=== PATIENT | female | born 1970 | race Caucasian/White ===

== ENCOUNTER 2024-11-26 16:46 | Emergency (ER) | payer OTHER, SELFPAY ==
--- OUTSIDE RECORDS SUMMARY | 2024-11-26 16:48 | XMS_ITS | Clinical Summary ---
Author Organization [facility] Address [address] [place] [id number] Care Team Providers Care Child Protective Services Social Worker Name Role Phone Marivel Lopez MD Primary Care Provider [phone] Atilio Bingham MD Unavailable [phone] Allergies No known active allergies Medications SUMAtriptan (IMITREX) 25 mg tabletIndications:M igraine without aura and without status migrainosus, not intractable Take 1 Tablet (25 mg) by mouth every 2 hours if needed for Migraine. Give at minimum 2hrs apart. Max Dose: 200mg per 24hrs. 10 Tablet 3 4 Active ondansetron (ZOFRAN ODT) 4 mg disintegrating tabletIndications:M igraine without aura and without status migrainosus, not intractable Place 1-2 Tablets (4-8 mg) on the tongue every 8 hours if needed for Nausea/Vomit ing. 30 Tablet 1 4 Active hydrOXYzine HCL (ATARAX) 25 mg tabletIndications:S leep disturbance Take 1/2 to 1 tab po q hs for anxiety/slee p 30 Tablet 1 5 Active Active Problems Problem Noted Date Diagnosed Date Migraine without aura and wi thout status migrainosus, not intractable 09/22/2024 Pap smear for cervical cancer screening 12/09/19 24 Overview (12/09/2023): 11/2023 NIL/HPV Negative Plan: Pap and HPV due 11/2028 Colon polyp 03/19/2023 Overview (03/19/2023): Colonoscopy 03/2023 SSA , repeat in 3 years Generalized anxiety disorder 06/13/2018 Depression 06/13/2018 Acne 04/11/2018 Frontal headache - episodic 12/16/2015 Other and unspecified ovarian cyst 10/08/2011 Abdominal bloating 10/08/2011 Overview (11/13/2013): EGD 11/2013 reflux on biopsy Encounters Date Type Department Care Team Description 10/12/2024 12:00 PM MERCHANDISE MANAGER Office Visit [facility] [address] [place] [address] Atilio Bingham MD Consult (Microscopic hematuria) 10/12/2024 Travel 09/22/2024 9:00 AM MERCHANDISE MANAGER Ancillary Procedure [facility] [address] [place] [address] 09/22/2024 8:15 AM MERCHANDISE MANAGER Office Visit [facility] [address] [place] [address] Marivel Lopez MD Migraine (4 Migraines since january, mostly in the middle of the night and no relief with OTC meds, looking for quick relief/) 09/22/2024 Travel from Last 3 Months Immunizations Name Administration Dates Next Due AMB Influenza, IIV3 (Age >=3 years)(Flu Clinic Only) 07/20/2013,09/17/2009,08/10/2008 AMB Influenza, IIV4 PF (=>6 mos Flulaval,Fluzone Fluarix)(Flu Clinic Only) 08/21/2017,08/06/2015,07/24/2014 COVID-19 vaccine ([employer] JV NTBreadcrumbtracking 30mcg/0.3mL) PF, MDV 11/12/2020,10/22/2020 Influenza A (H1N1), Inactivated 08/15/2009 Influenza, IIV3 (Age 6-35 mos) 09/17/2009 Influenza, IIV3 (Age >=3 years) 07/20/20 13,07/07/2012,10/08/2011,2009,08/10/2008,09/15/2007,09/01/2005 Influenza, IIV4 07/26/2022,,07/11/2020,2018,06/23/2018,07/16/2016,08/06/2015,1 Td (Age >=7 Years) 08/14/2020,10/04/2001 Tdap 08/14/2010 Family History Medical History Relation Name Comments Other Father AAA age 90 Stroke Maternal Grandmother Cancer Mother renal Cancer-breast Paternal Aunt Cancer-ovarian No Family History Relation Name Status Comments Father Maternal Grandmother Mother renal ca Paternal Aunt Social History Tobacco Use Types Packs/Day Years Used Date Smoking Tobacco: Never Smokeless Tobacco: Never Tobacco Cessation:Counseling Given: Yes Alcohol Use Standard Drinks/Week Comments Yes 0 (1 standard drink = 0.6 oz pur e alcohol) rarely 1 drink per month PHQ-2 Answer Date Recorded PHQ-2 TOTAL SCORE 4 11/23/2024 Social Connections Answer Date Recorded Do you often feel lonely or isolated from those around you? 0 12/02/2023 Financial Resource Strain Answer Date R ecorded Difficulty of Paying Living Expenses 3 12/02/2023 Difficulty of Paying Living Expenses Not on file 12/02/2023 Food Insecurity Answer Date Recorded Do you worry your food will run out before you are able to buy more? 1 12/02/2023 Transportation Needs Answer Date Record ed Does lack of transportation keep you from medica l appointments? 1 12/02/2023 Does lack of transportation keep you from work, meetings or getting things that you need? 1 12/02/2023 Housing Stability Answer Date Recorded What is your housing situation today? 1 12/02/2023 Utilities Answer Date Recorded Do you have trouble paying f or utilities (for example, heat, electricity, water, phone)? 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 Not on file Not on file Not on file Obstetrics History Para Term AB IAB SAB Ectopic Multiple Livin g Live Births 2 2 2 0 0 0 0 0 0 2 2 Date Outcome GA Total Labor Labor/2nd/3rd Weight Sex Type Anes PTL Caron A1 A5 Name Clin 2003 Term Living 2005 Term Living Last Filed Vital Signs Vital Sign Reading Time Taken Comments Blood Pressure 124/60 10/12/2024 12:03 PM MERCHANDISE MANAGER Pulse 76 10/12/2024 12:03 PM MERCHANDISE MANAGER Temperature 36.7 C (98.1 F) 07/14/2019 2:24 PM CDT Respiratory Rate 16 03/16/2023 9:30 AM CDT Oxygen Saturation 100% 09/22/2024 8:19 AM MERCHANDISE MANAGER Inhaled Oxygen Concentration - - Weight 63.3 kg (139 lb 9.6 oz) 10/12/2024 12:03 PM MERCHANDISE MANAGER Height 171.8 cm (5' 7.64) 05/24/2023 2:28 PM CD T Body Mass Index 21.45 05/24/2023 2:28 PM CDT Plan of Treatment Upcoming Encounters Date Type Department Care Team (Late st Contact Info) Description 01/01/2025 8:20 AM CDT Office Visit [facility] [address] [place] [address] Marivel Lopez MD [address] [place] [address] Health Maintenance Due Date Last Done Comments HIV for age 15-65 1985 Hepatitis C screening for ag e 18-79 01/21/1988 Pneumococcal series for age 50+ (1 of 1 - PCV) 01/21/2020 Zoster (shingles) series for age 50+ (1 of 2) 01/21/2020 BMI (ht and wt on same day) for age 18+ 05/24/2024 05/24/2023, 11/10/2021, 08/14/2020, Additional history exists Influenza for age 50-64 06/04/2024 07/26/20 22, 07/09/2021, 07/11/2020, Additional history exists Mammogram for age 45-75 09/22/2025 09/22/20 24, 05/05/2023, 02/11/2022, Additional history exists Depression screening for age 12+ 11/23/2025 11/23/2024, 10/05/2023, 10/28/2022, Additional history exists Colonoscopy through age 75 03/16/202603/16, 03/16/2023, 03/16/2023 Lipids for age 45-75 11/17/2028 11/17/2023, 08/14/2020, 11/15/2014, Additional history exists Pap test for age 21-65 12/01/2028, 12/02/2023, 12/15/2018, Additional history exists Tetanus booster 08/14/2030 08/14/2020, 08/04, 10/04/2001 Tdap Completed 08/14/2010 COVID-19 vaccine series Completed 07/20/20 24, 06/23/2022, 09/03/2021, Additional history exists Procedures Procedure Name Priority Date/Time Associated Diagnosis Comments XR MAMMO CRISTINA BILAT SCREEN Routine 09/22/2024 9:15 AM MERCHANDISE MANAGER Encounter for screening mammogram for malignant neoplasm of breast HPV HIGH RISK Routine 12/02/2023 9:02 AM MERCHANDISE MANAGER Pap smear for cervical cancer screening LIPID PANEL W REFLEX MEASURED LDL Routine 11/17/2023 4:49 PM MERCHANDISE MANAGER Elevated blood pressure reading without diagnosis of hypertension COLONOSCOPY SCREENING Routine 03/16/2023 7:56 AM CDT Screening for colon cancer from Last 3 Months or Most Recently Relevant to Health Maintenance Results * XR MAMMO CRISTINA BILAT SCREEN (09/22/2024 9:15 AM MERCHANDISE MANAGER) Anatomical Region Laterality Modality BREASTS, Breast Left, Breast Right Bilateral Mammography Impressions 09/22/2024 2:44 PM MERCHANDISE MANAGER There is no radiographic evidence for malignancy. Recommend annual mammograms. MAMMOGRAM ASSESSMENT: ACR 1 Negative PATIENTS: You will also receive a letter with your examination results in an easy to read format. If you have questions about your results, please contact your referring provider. Narrative 09/22/2024 2:44 PM MERCHANDISE MANAGER For Patients: As a result of the Century Cures Act, medical imaging exams and procedure reports are released immediately into your electronic medical record. You may view this report before your referring provider. If you have questions, please contact your health care provider. XR MAMMO CRISTINA BILAT SCREEN [[id number]] CLINICAL HISTORY: This is an asymptomatic 54 y.o. patient. INDICATION FOR EXAM: Mammogram Screening. TECHNIQUE: CC & MLO views were obtained. This study was evaluated with the assistance of Computer-Aided Detection. Breast Tomosynthesis was used in interpretation. COMPARISON FILM: Yes 05/05/23 [facility] [employer] 02/11/22 [facility] FINDINGS: The breasts are extremely dense, which lowers the sensitivity of mammography. There are no dominant masses, suspicious micro calcifications or areas of architectural distortion. us Marivel Lopez MD MAMMO Final Resul t * HPV HIGH RISK (12/02/2023 9:02 AM MERCHANDISE MANAGER) TYPE 16 Negative Negative 12/07/2023 1:31 PM MERCHANDISE MANAGER [facility] TYPE 18 Negative Negative 12/07/2023 1:31 PM MERCHANDISE MANAGER [facility] OTHER HIGH RISK TYPES Negative Negative 12/07/2023 1:31 PM [facility]CHANDISE MANAGER [facility] Other (Cervical) Non-Blood / Unknown 12/02/2023 9:02 AM MERCHANDISE MANAGER 12/03/2023 1:43 PM MERCHANDISE MANAGER Narrative [facility] - 12/07/2023 1:31 PM MERCHANDISE MANAGER HPV types 16, 18, 31, 33, 35, 39, 45, 51, 52, 56, 58, 59, 66 and 68 DNA were undetectable or below the pre-set threshold. Methodology: Chai Violeta 4800 HPV Test us Marivel Lopez MD MICROBIOLOGY Final Resul t [facility] [address] [address], * LIPID PANEL W REFLEX MEASURED LDL (11/17/2023 4:49 PM MERCHANDISE MANAGER) CHOLESTEROL,TOTAL 179 100 - 199 mg/dL 11/18/2023 3:00 PM [facility] Comment: Cholesterol, Total Reference Ranges Desirable <200 mg/dL Borderline 200-239 mg/dL High >=240 mg/dL TRIGLYCERIDES 131 <150 mg/dL 11/18/2023 3:00 PM MERCHANDISE MANAGER [facility] HDL CHOLESTEROL 53 >40 mg/dL 3:00 PM [facility] NON-HDL CHOLESTEROL 126 <145 mg/dl 11/18/2023 3:00 PM MERCHANDISE MANAGER [facility] CHOL/HDL RATIO 3.38 <4.50 11/18/2023 3:00 PM MERCHANDISE MANAGER [facility] LDL CHOLESTEROL 100 <=130 mg/dL 11/18/2023 3:00 PM [facility] VLDL CHOLESTEROL 26 <=30 mg/dL 11/18/2023 3:00 PM [facility] PROVIDER ORDERED STATUS RANDOM 11/18/2023 3:00 PM [facility] Blood BLOOD SPECIMEN / Unknown Venipuncture / Unknown 11/17/2023 4:49 PM MERCHANDISE MANAGER 11/17/2023 4:51 PM MERCHANDISE MANAGER us Marivel Lopez MD CHEMISTRY Final Resul t [facility] [address] [address], [place] * COLONOSCOPY (03/16/2023 8:28 AM CDT) 03/16/2023 8:28 AM CDT Narrative Transcriptions Keven Lim MD - 03/16/2023 9:15 AM CDT Patient Name: Luba Kruse Procedure Date: 03/16/2023 Gender: Female Date of : 1970 Admit Type: Outpatient Procedure: Colonoscopy Proceduralist: Keven Lim MD , Mary Recio (Nurse), Melissa Boothe RN (Nurse) Indications/Pre-Op Diagnosis: Screening for colorectal malignant neoplasm, This is the patient's first colonoscopy, Incidental diarrhea noted Medications: Fentanyl 100 micrograms IV, Midazolam 4 mgIV, The level of sedation administered wasmoderate Procedure Description: The patient had risks, benefits and alternatives explained to andgave informed consent. The patient had a stable cardiopulmonary status and judged an adequate candidate for conscious sedation. The [id number] was passed through the anus and advanced to the terminal ileum. The colonoscopy was performed without difficulty. The patient tolerated the procedure well. The quality of the bowel preparationwas good. The ileocecal valve, appendiceal orifice, and rectum were photographed. Complications: No immediate complications. Estimated Blood Loss & Specimen: Estimated blood loss: none. Specimen collected - Yes and sent to Laboratory Findings: The perianal and digital rectal examinations were normal. The terminal ileum appeared normal. The entire examined colon appeared normal on direct and retroflexion views. Biopsies for histology were taken with a cold forceps from the entire colon for evaluation of microscopic colitis. Impressions/Post-Op Diagnosis: - The examined portion of the ileum was normal. - The entire examined colon is normal on direct and retroflexionviews. - Biopsies were taken with a cold forceps from the entire colon for evaluation of microscopic colitis. Recommendation: - Patient has a contact number available for emergencies. The signsand symptoms of potential delayed complications were discussed with the patient. Return to normal activities tomorrow. Written discharge instructions were provided to the patient. - Resume previous diet. - Continue present medications. - Await pathology results. - Repeat colonoscopy in 10 years for screening purposes. Moderate Sedation: A time out was performed before the procedure. Moderate (conscious) sedation was administered by the endoscopy nurse and supervised bythe endoscopist. The following parameters were monitored: oxygensaturation, heart rate, blood pressure, EKG, CO2, respiratory rate, adequacy of pulmonary ventilation and reponse to care. Please refer to the patient's medical record flowsheets and nursing notes for moderate sedation details. Total physician intraservice time was 20 minutes. Keven Lim MD 03/16/2023 9:15:12 AM This report has been signed electronically. Note Initiated On: 03/16/2023 8:28 AM Procedure Code(s): --- Professional --- 07133, Colonoscopy, flexible; with biopsy, single or multiple Diagnosis Code(s): --- Professional --- Z12.11, Encounter for screening formalignant neoplasm of colon CPT copyright 2021 [employer]. All rights reserved. The codes documented in this report are preliminary and upon chief telephone operator reviewmay be revised to meet current compliance requirements. Scope In: 8:47:44 AM Scope Withdrawal Time 0 hours 8 minutes 2 seconds Scope Out: 9:06:57 AM us Keven Lim MD PROCEDURE ORD Final Res ult from Last 3 Months or Most Recently Relevant to Health Maintenance Additional Health Concerns Infection Onset Date Last Indicated Rule-Out C.diff 01/22/2020 01/22/2020 Insurance [facility] [place] [id number] Care Teams Child Protective Services Social Worker Relationship Specialty Start Date End Date Marivel Lopez MD [address] [facility] [address] PCP - General Family Practice 05/04/23 Atilio Bingham MD [address] [place] [address] [place] [address] Surgery - Urology 10/12/24
[2024-11-26 17:09] VITALS: BP 130/74; PULSE 90; RESP 20; TEMP 37.9; O2SAT 100; BMI 21.1
--- NOTE | 2024-11-26 18:00 | ED_ITS ---
HPI - General Adult General Date Seen: 11/26/24 Chief complaint: Nausea/Vomiting Stated complaint: can't stop throwing up Time Seen by Provider: 11/26/24 17:31 History of Present Illness HPI narrative: 54-year-old female with history of anxiety (on hydroxyzine), migraine headache (on sumatriptan p.r.n.) presenting to the ER today with nausea and repetitive, uncontrolled vomiting . She presents to the ER today with her . History is obtained from them both. She began to feel ill with GI symptoms especially nausea and vomiting earlier today. Also several episodes of watery medina diarrhea. Emesis has been largely watery 2. No bloody emesis. She is not having any high fever. When she gets nauseous she does have crampy abdominal pain but otherwise no severe abdominal pain. She has had so many episodes of vomiting, at least tender 20 that she is feeling dehydrated and weak. She also has had multiple episodes of diarrhea, often triggered when she is retching to throw up She has no history of inflammatory bowel disease. She is not diabetic or immunosuppressed. No recent travel or antibiotics. No known sick exposures. Related Data Home Medications ?Medication ?Instructions ?Recorded ?Confirmed hydroxyzine HCl 25 mg tablet 25 mg PO DAILY PRN 11/26/24 11/26/24 sumatriptan succinate 25 mg tablet 25 mg PO DIRECTED 11/26/24 11/26/24 Allergies Allergy/AdvReac Type Severity Reaction Status Date / Time No Known Drug Allergies Allergy Verified 11/26/24 17:10 [facility] Social History Smoking Status: Never smoker How often do you have a drink containing alcohol: never AUDIT-C Alcohol total score: 0 Non-prescribed substance use: denies use Exam Narrative: Exam Narrative: Constitutional: Appears well-developed and well-nourished. Initially resting in bed, lying on her right side. When she rolls over to talk with me and for exam she gets more nauseous and throws up. She is uncomfortable appearing, but converses. HENT: Head: Atraumatic. Nose: Nose normal. Mouth/Throat: Oral mucosa is clear but dry. Not desiccated her car. no trismus. Pharynx normal. Tonsils symmetric. No tonsillar enlargement, erythema, or exudate. Eyes: Conjunctivae normal. EOM normal. Pupils equal, round, and reactive to light. No scleral icterus. Neck: Normal range of motion. Neck supple. No tracheal deviation present. Cardiovascular: Normal rate, regular rhythm. No gallop. No friction rub. No murmur heard. Symmetric radial artery pulses Pulmonary/Chest: Effort normal. No stridor. No respiratory distress. No wheezes. No rales. No rhonchi . No tenderness. Abdominal: Soft. Bowel sounds normal. No distension. No mass. Mild tenderness. No rebound. No guarding. No CVA tenderness Musculoskeletal: RUE: Normal range of motion. No tenderness. No deformity LUE: Normal range of motion. No tenderness. No deformity RLE: Normal range of motion. No edema. No tenderness. No deformity LLE: Normal range of motion. No edema. No tenderness. No deformity Neurological: Alert and oriented to person, place, and time. Normal strength. CN II-VII intact. No sensory deficit. GCS eye subscore is 4. GCS verbal subscore is 5. GCS motor subscore is 6. Normal coordination Skin: Skin is warm and dry. No rash noted. No pallor. Normal capillary refill. Psychiatric: Normal mood. Normal affect. Const: Vital Signs, click to edit/add: Vital Signs - 24 hr 11/26/24 17:09 Temperature 100.2 F H Pulse Rate [Right Pulse Oximeter] 90 Respiratory Rate 20 Blood Pressure [Ri ght Upper Arm] 130/74 Pulse Oximetry 100 Oxygen Delivery Me thod Room Air Course Course ED Course: Recheck-had more nausea and vomiting while the nurses were trying to start her IV Reevaluation(s) Reevaluation #1: Recheck-feeling much better after Zofran and fluids. Tolerating p.o. ice chips. She feels comfortable discharging home. She has an adequate supply of Zofran to use if needed home. Vital Signs Vital signs: Initial Vital Signs Temperature 100.2 F H 11/26/24 17:09 Temperature Source Temporal Artery Scan 11/26/24 17:09 Pulse Rate 90 11/26/24 17:09 Respiratory Rate 20 11/26/24 17:09 Blood Pressure 130/74 11/26/24 17:09 Blood Pressure Mean 92 11/26/24 17:09 Blood Pressure Position Sitting 11/26/24 17:09 Pulse Oximetry 100 11/26/24 17:09 Oxygen Delivery Method Room Air 11/26/24 17:09 Vital Signs Temperature 100.2 F H 11/26/24 17:09 Pulse Rate 90 11/26/24 17:09 Respiratory Rate 20 11/26/24 17:09 Blood Pressure 130/74 11/26/24 17:09 Pulse Oximetry 100 11/26/24 17:09 Oxygen Delivery Method Room Air 11/26/24 17:09 Temperature 100.2 F H 11/26/24 17:09 Pulse Rate 90 11/26/24 17:09 Respiratory Rate 20 11/26/24 17:09 Blood Pressure 130/74 11/26/24 17:09 Pulse Oximetry 100 11/26/24 17:09 Oxygen Delivery Method Room Air 11/26/24 17:09 Medications Administered Medications: Discontinued Medications Generic Name Dose Route Start Last Admin Trade Name Freq PRN Reason Stop Dose Admin Sodium Chloride 1,000 mls @ 1,000 mls/hr 11/26/24 18:15 11/26/24 19:32 0.9 % Sodium Chloride 1000 Ml IV 11/26/24 19:14 Infused .Q1H JOSUÉ Infusion Ketorolac Tromethamine 15 mg 11/26/24 18:06 11/26/24 18:29 Ketorolac 15 Mg/Ml Inj IVP 11/26/24 18:07 15 mg ONCE ONE Administration Ondansetron HCl 4 mg 11/26/24 18:06 11/26/24 18:28 Ondansetron 2 Mg/Ml Inj IVP 11/26/24 18:07 4 mg ONCE ONE Administration Medical Decision Making [facility] Narrative Medical decision making narrative: This patient presents with vomiting and diarrhea throughout the day today. The patient's symptoms and exam could be consistent with a viral GI infection. There is no high fever, severe pain, bilious or bloody emesis, blood or mucous in the stool, severe abdominal pain, or other concerning signs for a bacterial infection. No recent travel or high risk exposure for baceraial pathogen. No recent antibiotics or risk factors for C. diff. I don't see any evidence for appendicitis, bowel obstruction, abscess, bowel perforation, or other surgical emergency. Labs show no concerning electrolyte disturbance or renal failure. After meds given the patient is feeling better. At this point, the patient is non-septic appearing and well hydrated.I think the patient can be managed as an outpatient. We have discussed oral rehydration strategies. They understand and can perform the needed interventions at home. She already has Zofran 0 DT. We have discussed the signs and symptoms of worsening dehydration. They understand the need for immediate reevaluation if any of these symptoms occur. They are also directed to obtain close outpatient follow up within 24-48 hours. Lab Data Labs: Lab Results 11/26/24 Range/Units 18:15 WBC 12.28 H (4.50-11.00) K/uL RBC 4.88 (4.00-5.20) m/uL Hgb 14.8 (12.0-16.0) gm/dL Hct 43.8 (33.0-51.0) % MCV 90 (80-100) fL MCH 30 (26-34) pg MCHC 34 (32-36) gm/dL RDW Coeff of Leslie 12.0 (11.5-15.5) % Plt Count 266 (140-440) K/uL Neut % (Auto) 94.5 H (42.0-72.0) % Lymph % (Auto) 1.9 L (20-44) % Dunn % (Auto) 3.0 (0.0-11.0) % Eos % (Auto) 0.2 (0.0-7.0) % Baso % (Auto) 0.2 (0.0-3.0) % Neut # (Auto) 11.60 H (1.7-7.0) K/uL Lymph # (Auto) 0.20 L (0.90-2.90) K/uL Dunn # (Auto) 0.40 (0.00-0.90) K/UL Eos # (Auto) 0.00 (0.00-0.50) K/uL Baso # (Auto) 0.00 (0.00-0.30) K/uL Abs Immat Gran (auto) 0.00 (0.00-0.30) K/uL Imm/Tot Granulo (auto) 0.2 % Sodium 138 (135-149) mmol/L Potassium 3.6 (3.6-5.1) mmol/L Chloride 102 (96-114) mmol/L Carbon Dioxide 23 (20-32) mmol/L Anion Gap 13 (7-15) mEq/L BUN 21 (7-30) mg/dL Creatinine 0.8 (0.5-1.5) mg/dL Estimated Creat Clear 77.71 Estimated GFR 88 ml/min Glucose 149 H (60-115) mg/dL Calcium 9.7 (8.4-10.6) mg/dL Total Bilirubin 1.1 (0.1-1.5) mg/dL AST 28 (12-35) U/L ALT 24 (4-35) U/L Alkaline Phosphatase 91 (40-150) U/L Total Protein 7.4 (6.0-8.3) g/dL Albumin 4.7 (3.3-5.0) g/dL Lipase 55 (23-300) U/L Discharge Plan Discharge Clinical Impression: Nausea, vomiting, and diarrhea Patient Disposition: Home, Self-Care Condition: Stable Instructions: Acute Nausea and Vomiting (DC), Acute Diarrhea (ED) Additional Instructions: As we discussed, you can use your Zofran if needed at home for nausea. You can also use Imodium (available [id number] at the pharmacy) as needed for diarrhea. Please try to drink adequate fluids and maintain hydration Monitor your symptoms carefully. If you are getting worse or if you have uncontrolled vomiting or diarrhea, weakness or dehydration, high fever, blood in your vomit or stool, or worsening pain, please recheck with the ER right away. If her symptoms are not completely resolved within 24-48 hours, please recheck with your doctor or come back to the ER Activity Level: No Restrictions Discharge Diet: Regular Prescriptions: No Action hydroxyzine HCl 25 mg tablet 25 mg PO DAILY PRN sumatriptan succinate 25 mg tablet 25 mg PO DIRECTED Patient Comments: [NO ORIGINAL SIG] Follow Up/Referrals: Kiara Rios MD [Referring] - Stand Alone Forms: [employer] Info Instructions
[2024-11-26] MEDS: 0.9 % SODIUM CHLORIDE 1000 ml 1,000 ML IV (18:27)
[2024-11-26] MEDS: ONDANSETRON 2 MG/ML inj 4 MG IVP (18:28)
[2024-11-26 18:29] LABS: Basophils Percent Auto 0.2 % (0.0-3.0); Eosinophils Percent Auto 0.2 % (0.0-7.0); Hematocrit 43.8 % (33.0-51.0); Hemoglobin* 14.8 gm/dL (12.0-16.0); Immature Granulocytes Pct Auto 0.2 %; Lymphocytes Percent Auto 1.9 % (20-44); Mean Corpuscular HGB Conc 34 gm/dL (32-36); Mean Corpuscular Hemoglobin 30 pg (26-34); Mean Corpuscular Volume 90 fL (80-100); Neutrophils Percent Auto 94.5 % (42.0-72.0); Platelet Count* 266 K/uL (140-440); Red Blood Count 4.88 m/uL (4.00-5.20); White Blood Count* 12.28 K/uL (4.50-11.00)
[2024-11-26] MEDS: KETOROLAC 15 MG/ML inj IVP (18:29)
[2024-11-26 18:30] LABS: Slide Review Reflex No
[2024-11-26 18:46] LABS: Albumin* 4.7 g/dL (3.3-5.0); Chloride* 102 mmol/L (96-114); Potassium* 3.6 mmol/L (3.6-5.1); Sodium* 138 mmol/L (135-149)
[2024-11-26 18:49] LABS: Alanine Aminotransferase* 24 U/L (4-35); Alkaline Phosphatase* 91 U/L (40-150); Anion Gap 13 mEq/L (7-15); Aspartate Amino Transferase* 28 U/L (12-35); Bilirubin Total* 1.1 mg/dL (0.1-1.5); Blood Urea Nitrogen* 21 mg/dL (7-30); Calcium* 9.7 mg/dL (8.4-10.6); Carbon Dioxide* 23 mmol/L (20-32); Creatinine* 0.8 mg/dL (0.5-1.5); Est. Creatinine Clearance* 77.71; Estimated Glomerular Filt Rate 88 ml/min; Glucose* 149 mg/dL (60-115); Lipase* 55 U/L (23-300); Total Protein* 7.4 g/dL (6.0-8.3)
--- OUTSIDE RECORDS SUMMARY | 2024-11-26 19:07 | XMS_ITS | Clinical Summary ---
Author Organization [facility] Address [address] [place] [id number] Care Team Providers Care [employer] Name Role Phone Marivel Lopez MD Primary Care Provider [phone] Atilio Bingham MD Unavailable [phone] Allergies No known active allergies Medications [...] Department Care Team Description 10/12/2024 12:00 PM BELT MACHINE OPERATOR Office Visit [facility] [address] [place] [address] Atilio Bingham MD Consult (Microscopic hematuria) 10/12/2024 Travel 09/22/2024 9:00 AM BELT MACHINE OPERATOR Ancillary Procedure [facility] [address] [place] [address] 09/22/2024 8:15 AM BELT MACHINE OPERATOR Office Visit [facility] [address] [place] [address] Marivel Lopez MD Migraine (4 Migraines since january, mostly in the middle of the night and no relief with OTC meds, looking for quick relief/) 09/22/2024 Travel from Last 3 Months Immunizations Name Administration Dates Next Due AMB Influenza, IIV3 (Age >=3 years)(Flu Clinic Only) 07/20/2013,09/17/2009,08/10/2008 AMB Influenza, IIV4 PF (=>6 mos Flulaval,Fluzone Fluarix)(Flu Clinic Only) 08/21/2017,08/06/2015,07/24/2014 COVID-19 vaccine ([facility] NTFlagTap 30mcg/0.3mL) PF, MDV 11/12/2020,10/22/2020 Influenza A (H1N1), [...] on file Legal Sex Female 7:12 AM BELT MACHINE OPERATOR Gender Identity Not on file Sexual Orientation [...] Comments Blood Pressure 124/60 10/12/2024 12:03 PM BELT MACHINE OPERATOR Pulse 76 10/12/2024 12:03 PM BELT MACHINE OPERATOR Temperature 36.7 C (98.1 F) 07/14/2019 2:24 PM CDT Respiratory Rate 16 03/16/2023 9:30 AM CDT Oxygen Saturation 100% 09/22/2024 8:19 AM BELT MACHINE OPERATOR Inhaled Oxygen Concentration - - Weight 63.3 kg (139 lb 9.6 oz) 10/12/2024 12:03 PM BELT MACHINE OPERATOR Height 171.8 cm (5' 7.64) 05/24/2023 2:28 PM CD T Body Mass Index 21.45 05/24/2023 2:28 PM CDT Plan of Treatment Upcoming Encounters Date Type Department Care Team (Late st Contact Info) Description 01/01/2025 8:20 AM CDT Office Visit [facility] [address] [place] [address] Marivel Lopez MD [address] [place] [address] Health Maintenance Due Date Last Done Comments [...] CRISTINA BILAT SCREEN Routine 09/22/2024 9:15 AM BELT MACHINE OPERATOR Encounter for screening mammogram for malignant neoplasm of breast HPV HIGH RISK Routine 12/02/2023 9:02 AM BELT MACHINE OPERATOR Pap smear for cervical cancer screening LIPID PANEL W REFLEX MEASURED LDL Routine 11/17/2023 4:49 PM BELT MACHINE OPERATOR Elevated blood pressure reading without diagnosis of hypertension COLONOSCOPY SCREENING Routine 03/16/2023 7:56 AM CDT Screening for colon cancer from Last 3 Months or Most Recently Relevant to Health Maintenance Results * XR MAMMO CRISTINA BILAT SCREEN (09/22/2024 9:15 AM BELT MACHINE OPERATOR) Anatomical Region Laterality Modality BREASTS, Breast Left, Breast Right Bilateral Mammography Impressions 09/22/2024 2:44 PM BELT MACHINE OPERATOR There is no radiographic evidence for malignancy. Recommend annual mammograms. MAMMOGRAM ASSESSMENT: ACR 1 Negative PATIENTS: You will also receive a letter with your examination results in an easy to read format. If you have questions about your results, please contact your referring provider. Narrative 09/22/2024 2:44 PM BELT MACHINE OPERATOR For Patients: As a result of the Century Cures Act, medical imaging exams and procedure reports are released immediately into your electronic medical record. You may view this report before your referring provider. If you have questions, please contact your health care provider. XR MAMMO CRISTINA BILAT SCREEN [[id number]] CLINICAL HISTORY: This is an asymptomatic 54 y.o. patient. INDICATION FOR EXAM: Mammogram Screening. TECHNIQUE: CC & MLO views were obtained. This study was evaluated with the assistance of Computer-Aided Detection. Breast Tomosynthesis was used in interpretation. COMPARISON FILM: Yes 05/05/23 [facility] 02/11/22 [facility] FINDINGS: The breasts are extremely dense, which lowers the sensitivity of mammography. There are no dominant masses, suspicious micro calcifications or areas of architectural distortion. us Marivel Lopez MD MAMMO Final Resul t * HPV HIGH RISK (12/02/2023 9:02 AM BELT MACHINE OPERATOR) TYPE 16 Negative Negative 12/07/2023 1:31 PM BELT MACHINE OPERATOR [facility] TYPE 18 Negative Negative 12/07/2023 1:31 PM BELT MACHINE OPERATOR [facility] OTHER HIGH RISK TYPES Negative Negative 12/07/2023 1:31 PM BELT MACHINE OPERATOR [facility] Other (Cervical) Non-Blood / Unknown 12/02/2023 9:02 AM BELT MACHINE OPERATOR 12/03/2023 1:43 PM BELT MACHINE OPERATOR Narrative [facility] - 12/07/2023 1:31 PM BELT MACHINE OPERATOR HPV types 16, 18, 31, 33, 35, 39, 45, 51, 52, 56, 58, 59, 66 and 68 DNA were undetectable or below the pre-set threshold. Methodology: Chai Violeta 4800 HPV Test us Marivel Lopez MD MICROBIOLOGY Final Resul t [facility] [address] [place] [address], * LIPID PANEL W REFLEX MEASURED LDL (11/17/2023 4:49 PM BELT MACHINE OPERATOR) CHOLESTEROL,TOTAL 179 100 - 199 mg/dL 11/18/2023 3:00 PM [facility] Comment: Cholesterol, Total Reference Ranges Desirable <200 mg/dL Borderline 200-239 mg/dL High >=240 mg/dL TRIGLYCERIDES 131 <150 mg/dL 11/18/2023 3:00 PM BELT MACHINE OPERATOR [facility] HDL CHOLESTEROL 53 >40 mg/dL 3:00 PM [facility] NON-HDL CHOLESTEROL 126 <145 mg/dl 11/18/2023 3:00 PM BELT MACHINE OPERATOR [facility] CHOL/HDL RATIO 3.38 <4.50 11/18/2023 3:00 PM BELT MACHINE OPERATOR [facility] LDL CHOLESTEROL 100 <=130 mg/dL 11/18/2023 3:00 PM [facility] VLDL CHOLESTEROL 26 <=30 mg/dL 11/18/2023 3:00 PM [facility] PROVIDER ORDERED STATUS RANDOM 11/18/2023 3:00 PM [facility] Blood BLOOD SPECIMEN / Unknown Venipuncture / Unknown 11/17/2023 4:49 PM BELT MACHINE OPERATOR 11/17/2023 4:51 PM BELT MACHINE OPERATOR us Marivel Lopez MD CHEMISTRY Final Resul t [facility] [address] [place] [address], [place] * COLONOSCOPY (03/16/2023 8:28 AM CDT) [...] an adequate candidate for conscious sedation. The [id number] was passed through the anus and advanced [...] 8:28 AM Procedure Code(s): --- Professional --- 25632, Colonoscopy, flexible; with biopsy, single or multiple Diagnosis Code(s): --- Professional --- Z12.11, Encounter for screening formalignant neoplasm of colon CPT copyright 2021 [employer]. All rights reserved. The codes documented in this report are preliminary and upon physician pediatrician reviewmay be revised to meet current compliance requirements. Scope In: 8:47:44 AM Scope Withdrawal Time 0 hours 8 minutes 2 seconds Scope Out: 9:06:57 AM us Keven Lim MD PROCEDURE ORD Final Res ult from Last 3 Months or Most Recently Relevant to Health Maintenance Additional Health Concerns Infection Onset Date Last Indicated Rule-Out C.diff 01/22/2020 01/22/2020 Insurance [facility] HP [place] GRAJEDA [id number] Care Teams [employer] Relationship Specialty Start Date End Date Marivel Lopez MD [address] [facility] [address] PCP - General Family Practice 05/04/23 Atilio Bingham MD [address] [place] [address] [place] [id number] Surgery - Urology 10/12/24
== END 2024-11-26 20:14 | disposition home or self-care (01) ==
PROVIDERS: Emergency Provider Emergency Medicine
DX: R11.2 Nausea with vomiting, unspecified (principal); R19.7 Diarrhea, unspecified
CPT/HCPCS: 36415; 80053; 83690; 85025; 96374; 96375; 99283; 99284; J1885; J2405; J7030